=== PATIENT | female | born 1945 | race Caucasian/White ===

== ENCOUNTER 2021-02-11 17:17 | Emergency (ER) | payer OTHER, SELFPAY ==
[~2021-02-11] VITALS: Ht 157.5 cm; Wt 59.0 kg
[2021-02-11 17:41] VITALS: BP_SYST 82
--- NOTE | 2021-02-11 17:50 | NUR ---
Patient to H1 to gown for evaluation. Side rails up. BRI GUIDO
--- NOTE | 2021-02-11 17:55 | NUR ---
Pt bib medical transport for medical clearance to go to [facility]. No complaints at this time. V/S stable, no distress noted.
--- NOTE | 2021-02-11 18:00 | NUR ---
ER Dr. Mason at bedside examining patient.
[2021-02-11 18:29] LABS: BASOPHILS % (AUTO) 0.5 % (0.0-2.0); EOSINOPHILS # (AUTO) 0.1 K/uL (0.0-0.4); EOSINOPHILS % (AUTO) 2.2 % (0.0-4.0); HEMOGLOBIN 12.5 g/dL (12.0-16.0); LYMPHOCYTES # (AUTO) 1.7 K/uL (1.0-5.5); LYMPHOCYTES % (AUTO) 29.3 % (20.5-51.5); MEAN CORPUSCULAR HEMOGLOBIN 34 pg (27-31); MEAN CORPUSCULAR HGB CONC 34 % (32-36); MEAN CORPUSCULAR VOLUME 101 fL (79.0-98.0); MONOCYTES # (AUTO) 0.4 K/uL (0.0-1.0); MONOCYTES % (AUTO) 6.9 % (1.7-9.3); NEUTROPHILS # (AUTO) 3.5 K/uL (1.8-7.7); NEUTROPHILS % (AUTO) 61.1 % (40.0-70.0); PLATELET COUNT (AUTO) 129 K/uL (130-430); RED BLOOD CELL COUNT(AUTO) 3.68 MIL/uL (4.2-6.2); RED CELL DISTRIBUTION WIDTH 15.1 % (9.0-15.0); WHITE BLOOD COUNT (AUTO) 5.6 K/uL (4.8-10.8)
[2021-02-11 18:40] LABS: ANION GAP 2 (5-15); CALCIUM 9.4 mg/dL (8.4-11.0); CHLORIDE 108 mmol/L (98-107); CREATININE 1.02 mg/dL (0.55-1.30); GLUCOSE 101 mg/dL (70-99); SODIUM SERUM 144 mmol/L (136-145); UREA NITROGEN, BLOOD 14 mg/dL (8-21)
[2021-02-11 18:46] LABS: ALANINE AMINOTRANSFERASE 15 U/L (12-78); ALBUMIN 2.9 g/dL (3.4-4.8); ASPARTATE AMINOTRANSFERASE 13 U/L (10-37); TOTAL BILIRUBIN 0.3 mg/dL (0.0-1.0)
[2021-02-11 18:51] LABS: ACETAMINOPHEN < 1 ug/mL (1-30); ALCOHOL, BLOOD < 3 mg/dL (<10)
[2021-02-11] MEDS ORDERED: POTASSIUM CHLORIDE 20 MEQ TAB.PRT.SR PO ONE (19:00)
--- NOTE | 2021-02-11 19:00 | NUR ---
PT CALLED TRANSPORTATION [phone]. SPOKE W/ AYLIN WHO WILL CALL BACK W/ AN ETA.
--- NOTE | 2021-02-11 19:09 | NUR ---
Care of patient endorsed to LATA Christopher. Pt currently resting in bed, no acute distress noted.
--- NOTE | 2021-02-11 19:10 | NUR ---
Received endorsement from day shift, AAOX4, breathing spontaneously at room air, not in distress noted. for medical clearance going [facility] Addendum: 02/11/21 at 2150 by ELENA Received endorsement from day shift, AAOX2, breathing spontaneously at room air, not in distress noted. for medical clearance going [facility]
--- NOTE | 2021-02-11 19:15 | NUR ---
Asking for food, turkey sandwich, fruit offered, orange juice, consumed 75%,
[2021-02-11 19:17] LABS: CHOLESTEROL 150 mg/dL (<200); HDL CHOLESTEROL 66 mg/dL (>55); TRIGLYCERIDES 128 mg/dL (30-150)
[2021-02-11 19:18] LABS: LDL CHOLESTEROL 74 mg/dL (<100)
--- NOTE | 2021-02-11 19:20 | NUR ---
Ambulatory to toilet, voided freely, urine sample collected for urinalysis
--- NOTE | 2021-02-11 19:28 | NUR ---
Potassium level- 3.0, kdur 20meq 1 tab po given as ordered, tolerated orally
[2021-02-11 19:39] LABS: BILIRUBIN,URINE NEGATIVE (NEGATIVE); BLOOD, URINE NEGATIVE (NEGATIVE); CLARITY/URINE CLEAR (CLEAR); COLOR,URINE YELLOW (YELLOW); GLUCOSE,URINE NEGATIVE (NEGATIVE); KETONES,URINE TRACE (NEGATIVE); LEUKOCYTE ESTERASE ,URINE NEGATIVE (NEGATIVE); NITRITE, URINE NEGATIVE (NEGATIVE); PROTEIN URINE NEGATIVE (NEGATIVE)
[2021-02-11 19:50] LABS: BARBITURATE, URINE NEGATIVE (NEG <=200); BENZODIAZEPINE, URINE NEGATIVE (NEG <=150); CANNABINOID, URINE NEGATIVE (NEG <=50); COCAINE, URINE NEGATIVE (NEG <=150); METHAMPHETAMINES SCREEN,URINE NEGATIVE (NEG <=500); OPIATE, URINE NEGATIVE (NEG <=100); PHENCYCLIDINE SCREEN,URINE NEGATIVE (NEG <=25); UR TRICYCLIC ANTIDEPRESSANTS NEGATIVE (NEG <=300); URINE AMPHETAMINE NEGATIVE (NEG <=500); URINE METHADONE NEGATIVE (NEG <=200); URINE OXYCODONE SCREEN NEGATIVE (NEG <=100); URINE PROPOXYPHENE SCREEN NEGATIVE (NEG <=300)
--- NOTE | 2021-02-11 21:49 | NUR ---
Patient to be transferred to [facility]. Is being transferred due to higher level of care. Receiving facility has accepting physician and available space. ER physician has signed transfer form. Patient or responsible libertarian has agreed to transfer and signed form. Patient belongings inventoried and will be sent with patient. Copy of nursing notes, lab reports, EKG, Physicians Orders to be sent with patient. Report called to Nurse Sloan at receiving facility. Receiving physician is . [facility] has been called for transfer. ETA is 2300.
[2021-02-11 23:16] VITALS: BP_SYST 102
--- NOTE | 2021-02-11 23:16 | NUR ---
[facility] transport personnel came, summary report given
--- NOTE | 2021-02-11 23:23 | NUR ---
Patient given written and verbal discharge instructions and verbalizes understanding. ER MD discussed with patient the results and treatment provided. Patient in stable condition. ID arm band removed. No Rx of given. Patient educated on pain management and to follow up with PMD. Pain Scale 0/10. Opportunity for questions provided and answered.
== END 2021-02-11 23:23 ==
LOC: SED 17:17
DX: E87.6 Hypokalemia (principal); I10 Essential (primary) hypertension; F20.9 Schizophrenia, unspecified; F41.9 Anxiety disorder, unspecified; Z20.822 Contact with and (suspected) exposure to COVID-19; Z79.899 Other long term (current) drug therapy
CPT/HCPCS: 36415; 80053; 80061; 80307; 81003; 83036; 85025; 87081; 87426; 99285; G0480; G0481; G0482